=== PATIENT | male | born 1965 | race African-American/Black ===

== ENCOUNTER 2016-07-09 13:11 | Emergency (ER) | payer MEDICAID ==
--- NOTE | ~2016-07-09 | CT99 ---
[facility] A Service of [facility] RADIOLOGY TEXT RESULTS PATIENT: DEXTER VAZQUEZ LOCATION: [facility] : 65 UNIT #: [id number] AGE: [address]: ANNIE BA SEX: M ORDER DR: [id number] [facility] [address] [place], [place] [address] [id number] MR#: [id number] #: [id number] NAME: DEXTER SHIELDS : 1965 SEX: M STUDY DATE/TIME: 07/09/2016 16:53 UNIT: [facility] ROOM: STUDY DESCRIPTION: CT Maxillofacial Area W Cont Attending Physician: Annie Ba Aprn Ordering Physician: Annie Ba Aprn Primary Care Physician: Abdiel Parrish M.D. MEDICAL IMAGING REPORT This report is preliminary unless electronic signature is present EXAM CT face with IV contrast. HISTORY Right cheek swelling and redness for [address] exam was performed with one or more of the following radiation dose reduction techniques: automatic exposure control, adjustment of mA and/or kV according to patient size, and iterative reconstruction. FINDINGS CT face with IV contrast demonstrates moderate diffuse subcutaneous stranding over the lateral right face, extending to the submandibular region, with overlying mild skin thickening, but no associated fluid collection or abscess or soft tissue gas. Findings suggest diffuse cellulitis or edema. In addition, there is a subcutaneous fluid collection lateral to the posterior body of the right mandible, measuring 1.9 cm x 1.3 cm, and this could be secondary to a small abscess, but there is only a subtle a peripheral partly enhancing rim, and there are no associated air bubbles. There is also mild enlargement of the adjacent superficial lobe of the right parotid gland, which could reflect underlying right parotitis. Several mildly prominent but subcentimeter submental lymph nodes. No additional adenopathy. No soft tissue gas. The remainder of the right parotid gland, the left parotid gland and the submandibular glands, and the partly visualized superior thyroid gland are unremarkable. No oropharyngeal airway narrowing or displacement. IMPRESSION 1. Fairly extensive diffuse subcutaneous stranding over the lateral right face and lateral to the right mandible, suggesting diffuse cellulitis. 2. Fairly subtle subcutaneous fluid collection lateral to the posterior STS. [facility] A Service of [facility] RADIOLOGY TEXT RESULTS PATIENT: DEXTER VAZQUEZ LOCATION: [facility] : 65 UNIT #: [id number] AGE: [address]: ANNIE BA SEX: M ORDER DR: body of the right mandible measures 1.9 cm x 1.3 cm and is concerning for a small subcutaneous abscess but there are no associated air bubbles. 3. Mild enlargement of the adjacent superficial lobe of the right parotid gland could be secondary to mild parotitis but secondary inflammation is considered more likely. 4. No adenopathy. Dictated by... Gama Boyer M.D. THIS IS AN ELECTRONICALLY VERIFIED REPORT Gama Boyer M.D. at 07/12/2016 10:14 AM DARRICK/makayla TD: 07/09/2016 23:17 JOB #: [id number] MEDICAL IMAGING REPORT Page 1 of 1 COPY
[~2016-07-09 13:11] MED LIST: ASPIRIN ENTERI325 M1 PO; CARDIZEM CD120 M1 PO; VITAMIN C1000 M2 PO
[2016-07-09 16:55] LABS: ALBUMIN SERUM 4.9 g/dL (3.5-5.0); BILIRUBIN,TOTAL 1.3 mg/dL (0.2-2.0); CALCIUM SERUM 9.7 mg/dL (8.4-10.2); CREATININE SERUM 0.9 mg/dL (0.6-1.4); PROTEIN TOTAL SERUM 8.5 g/dL (6.0-8.3)
[2016-07-09 17:31] LABS: POC - CREATININE 0.69 mg/dL (0.64-1.27); POC - GFR >60.0 mL/min (>60)
[2016-07-09 18:01] LABS: BASOPHIL# 0.1 X10e3 (0-0.3); BASOPHIL% 0.6 % (0-2.5); DIFF IND YES; EOSINOPHIL# 0.2 X10e3 (0-0.7); EOSINOPHIL% 1.8 % (0.0-7.0); HEMATOCRIT 46.5 % (38.0-50.0); HEMOGLOBIN 15.1 gm/dL (13.0-16.0); LYMPHOCYTE# 1.8 X10e3 (1.0-3.5); LYMPHOCYTE% 17.2 % (17.0-45.0); MEAN CELL VOLUME 100.4 FL (83-96); MEAN CORPUSCULAR HEMOGLOBIN 32.7 PG (28-34); MEAN CORPUSCULAR HGB CONC 32.5 g/dL (30-36); MEAN PLATELET VOLUME 11.5 FL (6.5-11.5); MONOCYTE# 0.8 X10e3 (0-1.0); MONOCYTE% 7.5 % (3.0-12.0); NEUTROPHIL# 7.7 X10e3 (1.5-7.1); NEUTROPHIL% 72.9 % (40-75); PLATELET COUNT 148 X10e3 (140-420); RED BLOOD COUNT 4.63 X10e (3.90-5.60); RED CELL DISTRIBUTION WIDTH 12.7 % (11.0-15.5); WHITE BLOOD COUNT 10.5 X10e3 (4.0-10.5)
[2016-07-09 18:49] LABS: PLATELET ESTIMATE NORMAL (NORMAL)
== END 2016-07-09 19:25 | disposition home or self-care (01) ==
LOC: CED 13:11 → CFTX 13:11
PROVIDERS: Nurse Practitioner Family
DX: L02.01 Cutaneous abscess of face (principal); Z90.89 Acquired absence of other organs; F17.210 Nicotine dependence, cigarettes, uncomplicated; Z88.0 Allergy status to penicillin
CPT/HCPCS: 10060; 70487; 80053; 82565; 85025; 99284; Q9967

== ENCOUNTER 2016-07-10 20:35 | Emergency (ER) | payer MEDICAID | END 2016-07-10 22:18 | disposition home or self-care (01) | LOC: CED 20:35 | DX: Z48.01 Encounter for change or removal of surgical wound dressing (principal) | CPT/HCPCS: 99281; 99282 ==

== ENCOUNTER 2016-07-12 20:57 | Emergency (ER) | payer MEDICAID | END 2016-07-12 21:45 | disposition home or self-care (01) | LOC: CED 20:57 | DX: Z48.01 Encounter for change or removal of surgical wound dressing (principal) | CPT/HCPCS: 99281; 99282 ==